=== PATIENT | female | born 1970 | race Asian ===

== ENCOUNTER 2017-11-06 15:46 | Inpatient (IN) | payer OTHER ==
[2017-11-06 16:29] LABS: BASOPHILS % (AUTO) 0.7 %; EOSINOPHILS % (AUTO) 0.6 %; LYMPHOCYTES % (AUTO) 35.2 %; MEAN CORPUSCULAR HEMOGLOBIN 12.3 pg (27.0-31.0); MEAN CORPUSCULAR HGB CONC 24.4 g/dL (32.0-36.0); MEAN CORPUSCULAR VOLUME 50.2 fL (81.0-99.0); MONOCYTES % (AUTO) 8.2 %; NEUTROPHILS % (AUTO) 55.3 %; PLT - PLATELET COUNT 417 10^3/uL (130-450); RED BLOOD COUNT 2.34 10^6/uL (4.20-5.40); RED CELL DISTRIBUTION WIDTH 23.5 % (12.0-15.0); WHITE BLOOD COUNT 5.4 x10^3/uL (4.8-10.8)
[2017-11-06 16:31] LABS: HGB - HEMOGLOBIN 2.9 g/dL (12.0-16.0)
[2017-11-06 16:32] LABS: INR 1.2 (0.8-1.2); PT - PROTHROMBIN TIME 13.2 secs (9.9-12.6)
[2017-11-06 16:34] LABS: ABNORMAL LYMPHS % (MANUAL) 0 %; BAND NEUTROPHILS % (MANUAL) 0 %
[2017-11-06 16:35] LABS: CALCIUM 8.7 mg/dL (8.5-10.3); CREATININE 0.4 mg/dL (0.4-1.0)
--- NOTE | 2017-11-06 16:47 | ED Physician Documentation ---
History of Present Illness - Stated complaint Stated Complaint: REFERRAL FROM LAB/MD LOW BLOOD TEST - Chief complaint Chief Complaint: General - History obtained from History obtained from: Patient, Family () - History of Present Illness Timing: Today (She went to her doctor's today for routine 1 year well visit, she had labs drawn showing hemoglobin of 3. This was repeated and was 2.9. She is asymptomatic. She says a few years ago she had upper and lower endoscopies for maybe bright red blood per rectum that were negative per her report. She never has a history of anemia though she has never been transfused. She continues to have regular menses that are not heavier than in the past. She denies any blood or dark or bloody stools.) Review of Systems Ten Systems: 10 systems reviewed and negative Constitutional: denies: Fever, Chills Cardiac: denies: Chest pain / pressure, Palpitations Respiratory: denies: Dyspnea, Cough GI: denies: Abdominal Pain, Nausea, Vomiting, Constipation, Diarrhea, Hematemesis, Bloody / black stool PD PAST MEDICAL HISTORY - Past Medical History Past Medical History: No - Present Medications Home Medications: Ambulatory Orders Medication Instructions Recorded Confirmed No Known Home Medications [No 11/06/17 11/06/17 Known Home Medications] - Allergies Allergies/Adverse Reactions: Allergies Allergy/AdvReac Type Severity Reaction Status Date / Time No Known Drug Allergies Allergy Verified 11/06/17 15:58 - Living Situation Living Situation: reports: With spouse/s.o. - Social History Does the pt smoke?: No Does the pt have substance abuse?: No - Family History Family history: reports: Non contributory PD ED PE NORMAL - Vitals Vital signs reviewed: Yes - General General: Alert and oriented X 3, No acute distress, Other (v pale) - HEENT HEENT: PERRL, EOMI - Neck Neck: Supple, no meningeal sign, No bony TTP - Cardiac Cardiac: RRR, No murmur - Respiratory Respiratory: No respiratory distress, Clear bilaterally - Abdomen Abdomen: Normal bowel sounds, Soft, Non tender - Rectal Rectal: Other (No stool in vault, but surgilube is guaiac neg.) - Neuro Neuro: Alert and oriented X 3 Eye Opening: Spontaneous Motor: Obeys Commands - Psych Psych: Normal mood, Normal affect Results - Vitals Vitals: Vital Signs - 24 hr 11/06/17 15:54 Temperature 36.7 C Heart Rate 104 H Respiratory 16 Rate Blood Pressure 124/57 L O2 Saturation 100 Oxygen O2 Source Room air - Labs Labs: Laboratory Tests 11/06/17 11/06/17 11/06/17 15:25 16:18 16:18 WBC 5.4 RBC 2.34 L Hgb 2.9 L* Hct 11.8 L* MCV 50.2 L MCH 12.3 L MCHC 24.4 L RDW 23.5 H Plt Count 417 MPV 8.0 Neut # Not Reportable Lymph # Not Reportable Callaway # Not Reportable Eos # Not Reportable Baso # Not Reportable Absolute Nucleated RBC Not Reportable Total Counted 100 Band Neuts % (Manual) 0 Abnorm Lymph % (Manual) 0 Nucleated RBC % Not Reportable Neutrophils # (Manual) 2.8 Lymphocytes # (Manual) 2.4 Monocytes # (Manual) 0.1 Eosinophils # (Manual) 0.1 Basophils # (Manual) 0.0 Differential Comment MANUAL DIFFERENTIAL Platelet Estimate INCREASED (>450,000) Platelet Morphology 1+ GIANT PLATELETS RBC Morph Micro Appear 4+ MICROCYTOSIS PT 13.2 H INR 1.2 APTT 30.9 Sodium Potassium Chloride Carbon Dioxide Anion Gap BUN Creatinine Estimated GFR (MDRD) Glucose Calcium Phosphorus Magnesium Iron TIBC % Saturation Transferrin Ferritin Vitamin B12 Folate Blood Type Blood Type Recheck B POSITIVE Antibody Screen Crossmatch IS Only 11/06/17 11/06/17 11/06/17 16:18 16:18 16:18 WBC RBC Hgb Hct MCV MCH MCHC RDW Plt Count MPV Neut # Lymph # Callaway # Eos # Baso # Absolute Nucleated RBC Total Counted Band Neuts % (Manual) Abnorm Lymph % (Manual) Nucleated RBC % Neutrophils # (Manual) Lymphocytes # (Manual) Monocytes # (Manual) Eosinophils # (Manual) Basophils # (Manual) Differential Comment Platelet Estimate Platelet Morphology RBC Morph Micro Appear PT INR APTT Sodium 135 Potassium 3.4 L Chloride 104 Carbon Dioxide 21 Anion Gap 10.0 BUN 7 Creatinine 0.4 Estimated GFR (MDRD) 171 Glucose 123 H Calcium 8.7 Phosphorus Magnesium Iron 8 L TIBC 535 H % Saturation 1 L Transferrin 382 Ferritin Vitamin B12 Folate Blood Type B POSITIVE Blood Type Recheck Antibody Screen NEGATIVE Crossmatch IS Only See Detail 11/06/17 11/06/17 16:18 16:18 WBC RBC Hgb Hct MCV MCH MCHC RDW Plt Count MPV Neut # Lymph # Callaway # Eos # Baso # Absolute Nucleated RBC Total Counted Band Neuts % (Manual) Abnorm Lymph % (Manual) Nucleated RBC % Neutrophils # (Manual) Lymphocytes # (Manual) Monocytes # (Manual) Eosinophils # (Manual) Basophils # (Manual) Differential Comment Platelet Estimate Platelet Morphology RBC Morph Micro Appear PT INR APTT Sodium Potassium Chloride Carbon Dioxide Anion Gap BUN Creatinine Estimated GFR (MDRD) Glucose Calcium Phosphorus 3.6 Magnesium 2.2 Iron TIBC % Saturation Transferrin Ferritin 1.2 L Vitamin B12 399 Folate 16.35 Blood Type Blood Type Recheck Antibody Screen Crossmatch IS Only PD MEDICAL DECISION MAKING - ED course ED course: 47-year-old woman presents with relatively asymptomatic but very severe anemia, she is guaiac negative but there was no stool in the vault. Spoke with Dr. Floyd for admission at 4:55 PM, blood was readied. Departure - Departure Disposition: [facility] DC/Xfer Clinical Impression: Severe anemia Condition: Stable Discharge Date/Time: 11/06/17 18:30
[2017-11-06 16:56] LABS: EOSINOPHILS # (MANUAL) 0.1 10^3/uL (0-0.7); LYMPHOCYTES # (MANUAL) 2.4 10^3/uL (1.5-3.5); LYMPHOCYTES % (MANUAL) 45 %; MONOCYTES # (MANUAL) 0.1 10^3/uL (0.0-1.0); NEUTROPHILS # (MANUAL) 2.8 10^3/uL (1.5-6.6); NEUTROPHILS % (MANUAL) 52 %
[2017-11-06 16:58] LABS: DIFFERENTIAL COMMENT MANUAL DIFFERENTIAL; PLATELET ESTIMATE, MANUAL INCREASED (>450,000) (NORMAL); PLATELET MORPHOLOGY 1+ GIANT PLATELETS (NORMAL)
[2017-11-06] MEDS ORDERED: PROCHLORPERAZINE 10 MG/2 ML VIAL IVP PRN (17:15)
[2017-11-06] MEDS ORDERED: ZOLPIDEM 5 MG TABLET PO PRN (17:15)
[2017-11-06] MEDS ORDERED: ACETAMINOPHEN 325 MG TABLET PO PRN (17:15)
[2017-11-06] MEDS ORDERED: ONDANSETRON 4 MG/2 ML VIAL IVP PRN (17:15)
[2017-11-06] MEDS ORDERED: oxyCODONE 5 MG TABLET PO PRN (17:15)
[2017-11-06] MEDS ORDERED: PROMETHAZINE 25 MG/1 ML VIAL IM PRN (17:15)
[2017-11-06 17:59] LABS: % IRON SATURATION 1 % (20-50); IRON 8 ug/dL (28-170); TOTAL IRON BINDING CAPACITY 535 ug/dL (250-450); TRANSFERRIN 382 mg/dL (192-382)
[2017-11-06 18:06] LABS: FERRITIN 1.2 ng/mL (11.0-306.8)
[2017-11-06 18:10] LABS: FOLATE 16.35 ng/mL (5.90 - >24.8)
--- NOTE | 2017-11-06 19:35 | HISTORY & PHYSICAL EXAMINATION ---
Chief Complaint - Chief Complaint Chief Complaint: Anemia History of Present Illness - Admitted From Admitted From:: Emergency Department - History Obtained From Records Reviewed: Yes History obtained from: Patient Exam Limitations: None - History of Present Illness HPI Comment/Other: Patient is a 47 year old female with no significant past medical history except some intermittent blood in her stools for which she underwent a negative EGD and colonoscopy a few years ago at the [facility] who presents to the emergency department with chief complaint of anemia. She states she went into her primary care doctors office today for a routine yearly check up and was called while she was out shopping with her and told that she needed to go the ER because she was very anemic with a hemoglobin of less than 3. She denies having had any symptoms except she states she had a cold 2 weeks ago for which she was in bed for 3 days. The patients says that his was dizzy and that is why she could not get up out of bed. The patient states it was more because of a cold. She denies having had any chest pain, shortness of breath, fatigue, black stools, lightheadness, syncope, weakness or appearing pale. On further questioning she does admit to intermittent blood in her stools that has been occurring for the past 2 years. She state she has an episode once every 2 months usually lasting for 1-2 days and then this resolves spontaneously. She says it is a minimal amount of blood that fills the toilet bowl. She denies any diarrhea. She denies any hematuria, hematemesis, bruising or changes in her mentation. Patient denies any headaches, blurred vision, runny nose, sore throat, nasal congestion, difficulty swallowing, chest pain, shortness of air, orthopnea, PND , increased lower extremity swelling, abdominal pain, nausea, vomiting, diarrhea , constipation, urinary urgency, urinary frequency, dysuria, hematuria, joint pain, joint swelling, muscle aches, back pain, neck stiffness, recent unintentional weight loss, changes in his appetite, rashes, hair loss or any focal neurologic deficits. On presentation to the emergency department the patient was afebrile however she was tachycardic but blood pressure was stable. Patient was not in any respiratory distress. She did appear very pale but otherwise did not complain of any symptoms. The patient's lab draw revealed hemoglobin of 2.9 with a MCV of 50.2. The patient had a slight hypokalemia of 3.4 otherwise remainder of her lab work was within normal limits. The patient's iron was low at 8 with an elevated TIBC and ferritin of 1.2 consistent with iron deficiency anemia. Given the patient's severe anemia and history of intermittent GI bleeding the patient was admitted to the hospital for severe anemia and possible GI bleed. Patient was started on blood transfusion in the emergency department. History - Past Medical History Cardiovascular: reports: None Respiratory: reports: None Neuro: reports: None Endocrine/Autoimmune: reports: None GI: reports: None : reports: None HEENT: reports: None Psych: reports: None Musculoskeletal: reports: None Derm: reports: None MRSA Hx?: No - Family & Social History Family History: Mother: Hypertension, Father: Living arrangement: At home Living Situation: With spouse/s.o. Social History Notes: The patient is originally from the [facility] but has been living in [place] for over 20 years. She lives with her they have 4 children. She has never smoked, she drinks alcohol once a year and denies any illicit drug use. - POLST Patient has POLST: No POLST Status: Full Code Meds/Allgy - Home Medications Home Medications: Ambulatory Orders Medication Instructions Recorded Confirmed No Known Home Medications [No 11/06/17 11/06/17 Known Home Medications] - Allergies Allergies/Adverse Reactions: Allergies Allergy/AdvReac Type Severity Reaction Status Date / Time No Known Drug Allergies Allergy Verified 11/06/17 15:58 Review of Systems - Other Findings Other Findings: A comprehensive review of systems was performed the pertinent positives and negatives are stated above in the HPI and the remainder of the review of systems is negative. Exam - Vital Signs Reviewed Vital Signs: Yes Vital Signs: Vital Signs x48h Temp Pulse Pulse Resp BP BP Pulse Ox 11/06/17 19:13 37.3 C 113 H 18 139/77 H 100 11/06/17 18:15 36.8 C 107 H 16 125/68 11/06/17 18:10 36.7 C 99 18 122/58 L 11/06/17 18:05 36.8 C 108 H 16 121/67 - Physical Exam General Appearance: positive: No acute distress, Alert, Other (Pale) Eyes Bilateral: positive: Normal inspection, PERRL, EOMI, No lid inflammation, No scleral icterus, Other (Conjunctival pallor) ENT: positive: ENT inspection nml, Pharynx nml, Dry mucous membranes. negative : Purulent nasal drainage, Pharyngeal erythema, Oral lesions Neck: positive: Nml inspection, Thyroid nml, No JVD, Trachea midline. negative : Thyromegaly, Lymphadenopathy (R), Lymphadenopathy (L), Stiff neck, Carotid bruit, Tracheal deviation Respiratory: positive: Chest non-tender, No respiratory distress, Breath sounds nml. negative: Wheezes, Rales, Rhonchi Cardiovascular: positive: No murmur, No gallop, Tachycardia Peripheral Pulses: positive: 2+ Abdomen: positive: Non-tender, No organomegaly, Nml bowel sounds, No distention. negative: Guarding, Rebound, Hepatomegaly Back: positive: Nml inspection. negative: CVA tenderness (R), CVA tenderness (L ) Skin: positive: No rash, Warm, Dry, Pallor. negative: Cyanosis, Diaphoresis Extremities: positive: Non-tender, Full ROM, Nml appearance, No pedal edema Neurologic/Psychiatric: positive: Oriented x3, CN's nml (2-12), Motor nml, Sensation nml, Mood/affect nml Conclusion/Plan - Problem List (1) Severe anemia Conclusion/Plan: Patient presents with severe anemia with hemoglobin of 2.9. She states that she is not symptomatic however she did have an episode 2 weeks ago where she was so dizzy she could not get out of bed for 3 days. Currently the patient does not appear to have any symptoms. She does admit to intermittent bloody stools for the last several years that occur once every couple of months for a couple of days. The patient does have severe iron deficiency anemia on lab work with iron level of 8 and elevated TIBC with ferritin of 1.2. Plan: Transfuse up to 6 units of packed RBCs H&H every 6 hours IV Protonix 40 mg twice daily Consult surgery for EGD and colonoscopy Iron replacement (2) Iron deficiency Conclusion/Plan: The patient presented with severe anemia with minimal symptoms and was found to have labs consistent with iron deficiency. Plan: Start patient on iron replacement (3) GI bleed Conclusion/Plan: Patient presented with severe anemia found to have iron deficiency. The patient did admit to intermittent episodes of blood in her stools. She has had EGD and colonoscopy in the past which were negative at that time. Patient does not have active bleeding and is hemodynamically stable. However she has severe anemia with hemoglobin of 2.9. Plan: Transfuse patient up to 6 units H&H every 6 hours IV Protonix 40 mg twice daily Surgery consult for EGD and colonoscopy Qualifiers: GI bleed type/associated pathology: unspecified gastrointestinal hemorrhage type Qualified Code(s): K92.2 - Gastrointestinal hemorrhage, unspecified (4) Hypokalemia Conclusion/Plan: K is 3.4 on presentation Replaced K Monitor K - Lab Results Lab results reviewed: Yes Fish Bones: 11/07/17 06:25 11/07/17 06:25 Other Lab Results: Laboratory Results WBC 5.4 x10^3/uL (4.8-10.8) 11/06/17 16:18 RBC 2.34 10^6/uL (4.20-5.40) L 11/06/17 16:18 Hgb 2.9 g/dL (12.0-16.0) L* 11/06/17 16:18 Hct 11.8 % (37.0-47.0) L* 11/06/17 16:18 MCV 50.2 fL (81.0-99.0) L 11/06/17 16:18 MCH 12.3 pg (27.0-31.0) L 11/06/17 16:18 MCHC 24.4 g/dL (32.0-36.0) L 11/06/17 16:18 RDW 23.5 % (12.0-15.0) H 11/06/17 16:18 Plt Count 417 10^3/uL (130-450) 11/06/17 16:18 MPV 8.0 fL (7.9-10.8) 11/06/17 16:18 Neut # Not Reportable 11/06/17 16:18 Lymph # Not Reportable 11/06/17 16:18 [place] # Not Reportable 11/06/17 16:18 Eos # Not Reportable 11/06/17 16:18 Baso # Not Reportable 11/06/17 16:18 Absolute Nucleated RBC Not Reportable 11/06/17 16:18 Total Counted 100 11/06/17 16:18 Band Neuts % (Manual) 0 % (0-10) 11/06/17 16:18 Abnorm Lymph % (Manual) 0 % 11/06/17 16:18 Nucleated RBC % Not Reportable 11/06/17 16:18 Neutrophils # (Manual) 2.8 10^3/uL (1.5-6.6) 11/06/17 16:18 Lymphocytes # (Manual) 2.4 10^3/uL (1.5-3.5) 11/06/17 16:18 Monocytes # (Manual) 0.1 10^3/uL (0.0-1.0) 11/06/17 16:18 Eosinophils # (Manual) 0.1 10^3/uL (0-0.7) 11/06/17 16:18 Basophils # (Manual) 0.0 10^3/uL (0-0.1) 11/06/17 16:18 Differential Comment MANUAL DIFFERENTIAL 11/06/17 16:18 Platelet Estimate INCREASED (>450,000) (NORMAL) 11/06/17: Platelet Morphology 1+ GIANT PLATELETS (NORMAL) 11/06/17: RBC Morph Micro Appear 4+ HYPOCHROMASIA (NORMAL) 3+ ANISOCYTOSIS (NORMAL) 3 + POIKILOCYTOSIS (NORMAL) 4+ MICROCYTOSIS (NORMAL) 11/06/17 16:18 RBC Morph Micro Appear 4+ HYPOCHROMASIA (NORMAL) 3+ ANISOCYTOSIS (NORMAL) 3 + POIKILOCYTOSIS (NORMAL) 4+ MICROCYTOSIS (NORMAL) 11/06/17 16:18 RBC Morph Micro Appear 4+ HYPOCHROMASIA (NORMAL) 3+ ANISOCYTOSIS (NORMAL) 3 + POIKILOCYTOSIS (NORMAL) 4+ MICROCYTOSIS (NORMAL) 11/06/17 16:18 RBC Morph Micro Appear 4+ HYPOCHROMASIA (NORMAL) 3+ ANISOCYTOSIS (NORMAL) 3 + POIKILOCYTOSIS (NORMAL) 4+ MICROCYTOSIS (NORMAL) 11/06/17 16:18 PT 13.2 secs (9.9-12.6) H 11/06/17 16:18 INR 1.2 (0.8-1.2) 11/06/17 16:18 APTT 30.9 secs (24.9-33.3) 11/06/17 16:18 Sodium 135 mmol/L (135-145) 11/06/17 16:18 Potassium 3.4 mmol/L (3.5-5.0) L 11/06/17 16:18 Chloride 104 mmol/L (101-111) 11/06/17 16:18 Carbon Dioxide 21 mmol/L (21-32) 11/06/17 16:18 Anion Gap 10.0 (6-13) 11/06/17 16:18 BUN 7 mg/dL (6-20) 11/06/17 16:18 Creatinine 0.4 mg/dL (0.4-1.0) 11/06/17 16:18 Estimated GFR (MDRD) 171 (>89) 11/06/17 16:18 Glucose 123 mg/dL (70-100) H 11/06/17 16:18 Calcium 8.7 mg/dL (8.5-10.3) 11/06/17 16:18 Iron 8 ug/dL (28-170) L 11/06/17 16:18 TIBC 535 ug/dL (250-450) H 11/06/17 16:18 % Saturation 1 % (20-50) L 11/06/17 16:18 Transferrin 382 mg/dL (192-382) 11/06/17 16:18 Ferritin 1.2 ng/mL (11.0-306.8) L 11/06/17 16:18 Vitamin B12 399 pg/mL (180-914) 11/06/17 16:18 Folate 16.35 ng/mL (5.90 - >24.8) 11/06/17 16:18 Blood Type B POSITIVE 11/06/17 16:18 Blood Type Recheck B POSITIVE 11/06/17 15:25 Antibody Screen NEGATIVE 11/06/17 16:18 Crossmatch IS Only See Detail 11/06/17 16:18 Core Measures - Anticipated LOS I expect patient to be DC'd or transferred within 96 hours.: Yes - DVT/VTE - Prophylaxis VTE/DVT Device ordered at admit?: Yes
[2017-11-06 20:38] LABS: MAGNESIUM 2.2 mg/dL (1.7-2.8); PHOSPHORUS 3.6 mg/dL (2.5-4.6)
[2017-11-06] MEDS: SODIUM CHLORIDE FLUSH 0.9% 10 ML SYRINGE IVP SCH (20:56)
[2017-11-06] MEDS: PANTOPRAZOLE 40 MG VIAL IVP SCH (20:56)
[2017-11-06] MEDS: SODIUM CHLORIDE FLUSH 0.9% 10 ML SYRINGE IVP PRN ×2 (20:56→22:54)
[2017-11-06] MEDS ORDERED: POTASSIUM CHLORIDE 20 MEQ TABLET PO SCH (21:00)
[2017-11-06 23:26] LABS: BASOPHILS % (AUTO) 0.8 %; EOSINOPHILS % (AUTO) 0.5 %; LYMPHOCYTES % (AUTO) 32.6 %; MEAN CORPUSCULAR HEMOGLOBIN 18.2 pg (27.0-31.0); MONOCYTES % (AUTO) 9.5 %; NEUTROPHILS % (AUTO) 56.6 %; PLT - PLATELET COUNT 354 10^3/uL (130-450); RED BLOOD COUNT 3.19 10^6/uL (4.20-5.40); RED CELL DISTRIBUTION WIDTH 39.2 % (12.0-15.0); WHITE BLOOD COUNT 6.2 x10^3/uL (4.8-10.8)
[2017-11-06 23:30] LABS: HGB - HEMOGLOBIN 5.8 g/dL (12.0-16.0)
[2017-11-07] MEDS: SODIUM CHLORIDE 0.9% 1,000 ML IV SCH ×2 (00:06→05:07)
[2017-11-07 00:32] LABS: ABNORMAL LYMPHS % (MANUAL) 0 %; BAND NEUTROPHILS % (MANUAL) 0 %; BASOPHILS # (MANUAL) 0.1 10^3/uL (0-0.1); BASOPHILS % (MANUAL) 1 %; LYMPHOCYTES # (MANUAL) 1.2 10^3/uL (1.5-3.5); LYMPHOCYTES % (MANUAL) 20 %; MONOCYTES # (MANUAL) 0.2 10^3/uL (0.0-1.0); NEUTROPHILS # (MANUAL) 4.7 10^3/uL (1.5-6.6); NEUTROPHILS % (MANUAL) 76 %; PLATELET MORPHOLOGY 1+ LARGE PLATELETS (NORMAL)
[2017-11-07 00:33] LABS: DIFFERENTIAL COMMENT MANUAL DIFFERENTIAL; PLATELET ESTIMATE, MANUAL NORMAL (130-450,000) (NORMAL)
[2017-11-07] MEDS: SODIUM CHLORIDE FLUSH 0.9% 10 ML SYRINGE IVP PRN ×3 (05:37→20:48)
[2017-11-07 06:41] LABS: BASOPHILS # (AUTO) 0.1 10^3/uL (0.0-0.1); BASOPHILS % (AUTO) 0.9 %; EOSINOPHILS # (AUTO) 0.1 10^3/uL (0.0-0.7); EOSINOPHILS % (AUTO) 1.3 %; LYMPHOCYTES # (AUTO) 1.9 10^3/uL (1.5-3.5); LYMPHOCYTES % (AUTO) 29.7 %; MEAN CORPUSCULAR HEMOGLOBIN 22.5 pg (27.0-31.0); MEAN CORPUSCULAR VOLUME 68.2 fL (81.0-99.0); MEAN PLATELET VOLUME 8.2 fL (7.9-10.8); MONOCYTES # (AUTO) 0.6 10^3/uL (0.0-1.0); MONOCYTES % (AUTO) 9.2 %; NEUTROPHILS # (AUTO) 3.8 10^3/uL (1.5-6.6); NEUTROPHILS % (AUTO) 58.9 %; PLT - PLATELET COUNT 292 10^3/uL (130-450); RED CELL DISTRIBUTION WIDTH 35.1 % (12.0-15.0); WHITE BLOOD COUNT 6.5 x10^3/uL (4.8-10.8)
[2017-11-07 06:44] LABS: INR 1.1 (0.8-1.2); PT - PROTHROMBIN TIME 12.8 secs (9.9-12.6)
[2017-11-07 07:07] LABS: ALBUMIN 3.9 g/dL (3.2-5.5); ALBUMIN/GLOBULIN RATIO 1.2 (1.0-2.2); BILIRUBIN,TOTAL 6.1 mg/dL (0.2-1.0); CALCIUM 8.5 mg/dL (8.5-10.3); CREATININE 0.3 mg/dL (0.4-1.0); MAGNESIUM 2.1 mg/dL (1.7-2.8); PHOSPHORUS 3.3 mg/dL (2.5-4.6); TOTAL PROTEIN 7.1 g/dL (6.7-8.2)
[2017-11-07 07:15] LABS: PLATELET ESTIMATE, MANUAL NORMAL (130-450,000) (NORMAL); PLATELET MORPHOLOGY NORMAL APPEARANCE (NORMAL)
[2017-11-07] MEDS: FAMOTIDINE 20 MG TABLET PO SCH (08:31)
[2017-11-07] MEDS: SODIUM CHLORIDE FLUSH 0.9% 10 ML SYRINGE IVP SCH ×2 (08:31→17:54)
[2017-11-07] MEDS: PANTOPRAZOLE 40 MG VIAL IVP SCH ×2 (08:31→20:48)
[2017-11-07] MEDS: FERROUS SULFATE 325 MG TABLET PO SCH ×2 (09:07→17:54)
[2017-11-07 09:51] LABS: BASOPHILS % (AUTO) 0.6 %; EOSINOPHILS # (AUTO) 0.1 10^3/uL (0.0-0.7); EOSINOPHILS % (AUTO) 0.8 %; HGB - HEMOGLOBIN 9.3 g/dL (12.0-16.0); LYMPHOCYTES # (AUTO) 1.3 10^3/uL (1.5-3.5); LYMPHOCYTES % (AUTO) 17.4 %; MEAN CORPUSCULAR HEMOGLOBIN 22.7 pg (27.0-31.0); MEAN CORPUSCULAR HGB CONC 33.4 g/dL (32.0-36.0); MEAN CORPUSCULAR VOLUME 68.1 fL (81.0-99.0); MEAN PLATELET VOLUME 8.2 fL (7.9-10.8); MONOCYTES # (AUTO) 0.6 10^3/uL (0.0-1.0); MONOCYTES % (AUTO) 8.4 %; NEUTROPHILS # (AUTO) 5.6 10^3/uL (1.5-6.6); NEUTROPHILS % (AUTO) 72.8 %; PLT - PLATELET COUNT 279 10^3/uL (130-450); RED BLOOD COUNT 4.09 10^6/uL (4.20-5.40); RED CELL DISTRIBUTION WIDTH 34.5 % (12.0-15.0); WHITE BLOOD COUNT 7.7 x10^3/uL (4.8-10.8)
[2017-11-07 10:16] LABS: PLATELET ESTIMATE, MANUAL NORMAL (130-450,000) (NORMAL); PLATELET MORPHOLOGY NORMAL APPEARANCE (NORMAL)
--- NOTE | 2017-11-07 15:08 | CONSULTATION NOTE ---
Referring Provider Name of Referring Provider:: Ben Floyd MD Consult Date: 11/07/17 Chief Complaint - Chief Complaint Chief Complaint: Profound anemia History of Present Illness - Admitted From Admitted From:: [facility] ED - History Obtained From Records Reviewed: Yes History obtained from: Patient and records Exam Limitations: None. - History of Present Illness HPI Comment/Other: This very pleasant and remarkably asymptomatic 47-year-old female came to our emergency department with a hemoglobin of 2.9. The number was so low and the patient was asymptomatic so the physicians in her care thought that a error had been made. They repeated the lab and found that her hemoglobin indeed was 2.9. Upon questioning the patient has rare rectal bleeding about once a month. She denies nausea vomiting constipation diarrhea melena or hematemesis. She denies weight loss. I am asked to perform an upper and lower endoscopy to look for source of bleeding. The patient states that she had scopes performed about 10 years ago may be longer. I do not have any record of those scopes. History - Past Medical History Cardiovascular: reports: None Respiratory: reports: None Neuro: reports: None Endocrine/Autoimmune: reports: None GI: reports: None : reports: None HEENT: reports: None Psych: reports: None Musculoskeletal: reports: None Derm: reports: None MRSA Hx?: No - Family & Social History Family History: Mother: Hypertension, Father: Living arrangement: At home Living Situation: With spouse/s.o. Social History Notes: The patient is originally from the [facility] but has been living in [place] for over 20 years. She lives with her they have 4 children. She has never smoked, she drinks alcohol once a year and denies any illicit drug use. - POLST Patient has POLST: No POLST Status: Full Code Meds/Allgy - Home Medications Home Medications: Ambulatory Orders Medication Instructions Recorded Confirmed No Known Home Medications [No 11/06/17 11/07/17 Known Home Medications] - Allergies Allergies/Adverse Reactions: Allergies Allergy/AdvReac Type Severity Reaction Status Date / Time No Known Drug Allergies Allergy Verified 11/06/17 15:58 Review of Systems - Constitutional Constitutional: denies: Fatigue - Cardiovascular Cariovascular: denies: Irregular heart rate, Palpitations, Chest pain, Lightheadedness - Respiratory Respiratory: denies: Cough - Gastrointestinal Gastrointestinal: reports: Rectal bleeding (Rare episodes of rectal bleeding once a month or so.). denies: Abdominal pain, Abdominal distention, Constipation, Diarrhea, Black stools - Genitourinary Genitourinary: denies: Hematuria - Musculoskeletal Musculoskeletal: denies: Muscle pain - Neurological Neurological: denies: General weakness (The patient was remarkably asymptomatic. ), Focal weakness Exam - Vital Signs Reviewed Vital Signs: Yes Vital Signs: Vital Signs x48h Temp Pulse Resp BP Pulse Ox 11/07/17 14:00 36.9 C 75 19 137/82 H 99 11/07/17 10:00 77 17 143/91 H 100 11/07/17 09:00 93 20 140/90 H 99 11/07/17 08:00 36.6 C 90 20 138/85 H 99 - Physical Exam General Appearance: positive: No acute distress Eyes Bilateral: positive: No lid inflammation, Conjunctivae nml, No scleral icterus Neck: positive: Trachea midline Respiratory: positive: Chest non-tender, No respiratory distress, Breath sounds nml Cardiovascular: positive: Regular rate & rhythm Abdomen: positive: Non-tender Skin: positive: Color nml Extremities: positive: Non-tender, Full ROM, Nml appearance Neurologic/Psychiatric: positive: Oriented x3 Conclusion/Plan - Diagnosis Diagnosis: Profound anemia with no source identified - Plan Plan: Esophagogastroduodenoscopy and colonoscopy with possible biopsies and/or polypectomies. Indications, procedure, alternatives (such as barium studies ( upper or lower), Cologuard (lower) and even no procedure at all) and risks including but not limited to perforation requiring operative repair, bleeding with its risks, and were fully explained to her. Conscious sedation was discussed at length with her as were its risks including but not limited to loss of airway, aspiration, respiratory depression, and not enough relief of pain and anxiety and she indicated that she wished to have conscious sedation for her procedure. I explained that her posterior oropharynx would also be anesthetized for the procedure. I explained that MAC anesthesia is associated with a higher incidence of intestinal perforation. Review of her history does not reveal any significant systemic disease that would contraindicate use of conscious sedation or MAC anesthesia. All questions were fully answered. Verbal and written consent was obtained. The patient in preparation for her esophagogastroduodenoscopy and colonoscopy will be n.p.o. and her colon will be mechanically prepped. 45 minutes of [id number] time spent with the patient over 2 visits with the majority of which was spent in discussion Chandni disclaimer: This document was created in part using voice recognition technology. Because of the inherent limitations of the system ([employer]'s [employer] user manual states that the licensee understands that speech recognition is a statistical process and that recognition errors are inherent in the process), occasional same sounding word substitutions and grammatical errors do occur and persist despite proofreading. Please read this document for context. - Lab Results Lab results reviewed: Yes Herb Bones: 11/08/17 04:45 11/08/17 04:45
--- NOTE | 2017-11-07 16:35 | PROVIDER PROGRESS NOTE ---
Assessment/Plan - Problem List (1) Severe anemia Assessment/Plan: Patient presented with severe anemia with hemoglobin of 2.9. She statef that she was not symptomatic however she did have an episode 2 weeks ago where she was so dizzy she could not get out of bed for 3 days. Currently the patient does not appear to have any symptoms. She does admit to intermittent bloody stools for the last several years that occur once every couple of months for a couple of days. The patient does have severe iron deficiency anemia on lab work with iron level of 8 and elevated TIBC with ferritin of 1.2. Plan: Transfused 4 units PRBCs and Hb up to 9.0 H&H every 6 hours IV Protonix 40 mg twice daily Consulted surgery patient will get EGD and colonoscopy tomorrow NPO after midnight Iron replacement started with FeSO4 BID (2) Iron deficiency Conclusion/Plan: The patient presented with severe anemia with minimal symptoms and was found to have labs consistent with iron deficiency. Plan: Started patient on iron replacement BID (3) GI bleed Conclusion/Plan: Patient presented with severe anemia found to have iron deficiency. The patient did admit to intermittent episodes of blood in her stools. She has had EGD and colonoscopy in the past which were negative at that time. Patient does not have active bleeding and is hemodynamically stable. However she has severe anemia with hemoglobin of 2.9. Patient states she had some blood in stools last night Plan: Transfused 4 units PRBCs and hb up to 9 H&H every 6 hours IV Protonix 40 mg twice daily Surgery consulted for EGD and colonoscopy which will be tomorrow Qualifiers: GI bleed type/associated pathology: unspecified gastrointestinal hemorrhage type Qualified Code(s): K92.2 - Gastrointestinal hemorrhage, unspecified (4) Hypokalemia Conclusion/Plan: Resolved - Current Meds Current Meds: Current Medications Generic Name Dose Route Start Last Admin Trade Name Freq PRN Reason Stop Dose Admin Famotidine 20 mg 11/07/17 09:00 11/07/17 08:31 Pepcid PO 20 mg DAILY FAREED Administration Ferrous Sulfate 325 mg 11/07/17 09:00 11/07/17 09:07 Feosol PO 325 mg BIDWM FAREED Administration Sodium Chloride 1,000 mls @ 100 mls/hr 11/06/17 18:00 11/07/17 05:07 Normal Saline 0.9% IV Not Given .Q10H FAREED Pantoprazole Sodium 40 mg 11/06/17 21:00 11/07/17 08:31 Protonix IVP 40 mg BID FAREED Administration Sodium Chloride 10 ml 11/07/17 01:00 11/07/17 08:31 Normal Saline Flush 0.9% IVP 10 ml [id number],[id number],1700 FAREED Administration Sodium Chloride 10 ml 11/06/17 17:15 11/07/17 08:31 Normal Saline Flush 0.9% IVP 10 ml PRN PRN Administration NEEDED PER PROVIDER ORDERS - Lab Result Lab results reviewed: Yes Fish Bone Diagrams: 11/07/17 09:28 11/07/17 06:25 - Additional Planning Condition/Complexity: Improved My Orders: My Active Orders 11/07/17 UA, MICROSCOPIC & CULT IF [URIN] Urgent 11/07/17 09:00 Ferrous Sulfate [Feosol] 325 mg PO BIDWM 11/07/17 10:24 Vital Signs [RC] Q4HR 11/08/17 00:01 NPO except Meds at Midnight [DIET] 11/08/17 05:00 CBC - COMP BLD CT W/AUTO DIFF [HEME] DAILYLAB Consult/Specialty: Surgery Plan Discussed with:: Patient, Spouse Time Spent: 31-60 minutes Subjective - Subjective Patient Reports: Feeling Better, Resting Comfortably, No Complaints Nursing Reports: No Complaints Objective Vital Signs: Vital Signs - 24 hr 11/06/17 11/06/17 11/06/17 18:05 18:10 18:15 Temperature 36.8 C 36.7 C 36.8 C Heart Rate 108 H 99 107 H Heart Rate [ Apical] Heart Rate [ Monitoring electrodes] Respiratory 16 18 16 Rate Blood Pressure 121/67 122/58 L 125/68 Blood Pressure [Left Radial artery] Blood Pressure [Right Brachial artery] Blood Pressure [Right Radial artery] O2 Saturation 11/06/17 11/06/17 11/06/17 19:13 19:59 20:00 Temperature 37.3 C 37.2 C 37.2 C Heart Rate 86 Heart Rate [ 113 H 86 Apical] Heart Rate [ Monitoring electrodes] Respiratory 18 13 13 Rate Blood Pressure 131/64 H Blood Pressure [Left Radial artery] Blood Pressure 139/77 H [Right Brachial artery] Blood Pressure 131/64 H [Right Radial artery] O2 Saturation 100 100 11/06/17 11/06/17 11/06/17 20:08 20:25 21:00 Temperature 37.2 C 37.2 C Heart Rate 86 86 Heart Rate [ Apical] Heart Rate [ 93 Monitoring electrodes] Respiratory 13 14 18 Rate Blood Pressure 131/64 H 131/74 H Blood Pressure 151/74 H [Left Radial artery] Blood Pressure [Right Brachial artery] Blood Pressure [Right Radial artery] O2 Saturation 100 11/06/17 11/06/17 11/06/17 22:00 22:50 22:53 Temperature 37.1 C 37.1 C Heart Rate 88 Heart Rate [ Apical] Heart Rate [ 83 88 Monitoring electrodes] Respiratory 16 17 17 Rate Blood Pressure 154/93 H Blood Pressure 140/81 H 154/93 H [Left Radial artery] Blood Pressure [Right Brachial artery] Blood Pressure [Right Radial artery] O2 Saturation 100 100 11/06/17 11/06/17 11/06/17 23:00 23:30 23:45 Temperature 37.1 C 37.1 C Heart Rate 79 80 Heart Rate [ Apical] Heart Rate [ 83 79 Monitoring electrodes] Respiratory 17 18 16 Rate Blood Pressure 141/76 H 142/77 H Blood Pressure 139/75 H 141/76 H [Left Radial artery] Blood Pressure [Right Brachial artery] Blood Pressure [Right Radial artery] O2 Saturation 100 100 11/07/17 11/07/17 11/07/17 00:00 01:00 02:00 Temperature Heart Rate Heart Rate [ Apical] Heart Rate [ 91 70 68 Monitoring electrodes] Respiratory 17 16 16 Rate Blood Pressure Blood Pressure 159/84 H 135/75 H 133/79 H [Left Radial artery] Blood Pressure [Right Brachial artery] Blood Pressure [Right Radial artery] O2 Saturation 100 100 100 11/07/17 11/07/17 11/07/17 02:40 02:44 03:00 Temperature 37 C 37 C 37.1 C Heart Rate 80 80 82 Heart Rate [ Apical] Heart Rate [ 80 82 Monitoring electrodes] Respiratory 16 16 16 Rate Blood Pressure 143/81 H 143/81 H 134/81 H Blood Pressure 143/81 H 134/81 H [Left Radial artery] Blood Pressure [Right Brachial artery] Blood Pressure [Right Radial artery] O2 Saturation 100 100 11/07/17 11/07/17 11/07/17 04:00 05:00 05:35 Temperature 37.1 C Heart Rate 80 Heart Rate [ Apical] Heart Rate [ 66 64 Monitoring electrodes] Respiratory 16 16 18 Rate Blood Pressure 153/86 H Blood Pressure 137/87 H 135/80 H [Left Radial artery] Blood Pressure [Right Brachial artery] Blood Pressure [Right Radial artery] O2 Saturation 100 100 11/07/17 11/07/17 11/07/17 06:00 07:00 08:00 Temperature 36.6 C Heart Rate Heart Rate [ Apical] Heart Rate [ 73 74 90 Monitoring electrodes] Respiratory 16 17 20 Rate Blood Pressure Blood Pressure 146/88 H 134/83 H 138/85 H [Left Radial artery] Blood Pressure [Right Brachial artery] Blood Pressure [Right Radial artery] O2 Saturation 99 98 99 11/07/17 11/07/17 11/07/17 09:00 10:00 14:00 Temperature 36.9 C Heart Rate Heart Rate [ Apical] Heart Rate [ 93 77 75 Monitoring electrodes] Respiratory 20 17 19 Rate Blood Pressure Blood Pressure 140/90 H 143/91 H 137/82 H [Left Radial artery] Blood Pressure [Right Brachial artery] Blood Pressure [Right Radial artery] O2 Saturation 99 100 99 Oxygen O2 Source Room air I&O (Last 24 Hrs): Intake and Output Totals x24h 11/05/17 11/06/17 11/07/17 23:59 23:59 23:59 Intake Total 506 1668 Output Total 600 1000 Balance -94 668 General: Alert, Oriented x3, Cooperative, No acute distress HEENT: Atraumatic, PERRLA, EOMI Neck: Supple, No JVD, No thyromegaly, +2 carotid pulse wo bruit, No LAD Lymphatic: no adenopathy Neuro: Alert, CN 2-12 Grossly Intact, Oriented Times 3 Cardiovascular: Regular rate, Normal S1, Normal S2, No murmurs Respiratory: Chest non-tender, No respiratory distress, Breath sounds nml Abdomen: Normal bowel sounds, Soft, No tenderness, No hepatospenomegaly, No masses Extremities: No clubbing, No cyanosis, No edema, Normal pulses, No tenderness/ swelling Skin: No rashes, No breakdown, No significant lesion - Results Results: Laboratory Results WBC 7.7 x10^3/uL (4.8-10.8) 11/07/17 09:28 RBC 4.09 10^6/uL (4.20-5.40) L 11/07/17 09: Hgb 9.3 g/dL (12.0-16.0) L 11/07/17: Hct 27.9 % (37.0-47.0) L 11/07/17: MCV 68.1 fL (81.0-99.0) L 11/07/17: MCH 22.7 pg (27.0-31.0) L 11/07/17: MCHC 33.4 g/dL (32.0-36.0) 11/07/17: RDW 34.5 % (12.0-15.0) H 11/07/17: Plt Count 279 10^3/uL (130-450) 11/07/17: MPV 8.2 fL (7.9-10.8) 11/07/17: Neut # 5.6 10^3/uL (1.5-6.6) 11/07/17: Lymph # 1.3 10^3/uL (1.5-3.5) L 11/07/17: Saline # 0.6 10^3/uL (0.0-1.0) 11/07/17: Eos # 0.1 10^3/uL (0.0-0.7) 11/07/17: Baso # 0.0 10^3/uL (0.0-0.1) 11/07/17: Absolute Nucleated RBC 0.02 x10^3/uL 11/07/17: Total Counted 100 11/06/17 23:17 Band Neuts % (Manual) 0 % (0-10) 11/06/17 23:17 Abnorm Lymph % (Manual) 0 % 11/06/17 23: Nucleated RBC % 0.3 /100WBC 11/07/17: Neutrophils # (Manual) 4.7 10^3/uL (1.5-6.6) 11/06/17 23:17 Lymphocytes # (Manual) 1.2 10^3/uL (1.5-3.5) L 11/06/17 23: Monocytes # (Manual) 0.2 10^3/uL (0.0-1.0) 11/06/17 23:17 Eosinophils # (Manual) 0.0 10^3/uL (0-0.7) 11/06/17 23:17 Basophils # (Manual) 0.1 10^3/uL (0-0.1) 11/06/17 23:17 Nucleated RBCs 1 % 11/06/17 23: Differential Comment MANUAL DIFFERENTIAL 11/06/17 23: Manual Slide Review Indicated 11/07/17 09:28 Platelet Estimate NORMAL (130-450,000) (NORMAL) 11/07/17 09:28 Platelet Morphology NORMAL APPEARANCE (NORMAL) 11/07/17 09:28 RBC Morph Micro Appear 4+ HYPOCHROMASIA (NORMAL) 3+ ANISOCYTOSIS (NORMAL) 3 + POIKILOCYTOSIS (NORMAL) 4+ MICROCYTOSIS (NORMAL) 11/06/17 16:18 RBC Morph Micro Appear 3+ HYPOCHROMASIA (NORMAL) 2+ ANISOCYTOSIS (NORMAL) 2 + POIKILOCYTOSIS (NORMAL) 3+ MICROCYTOSIS (NORMAL) 2+ SCHISTOCYTES (NORMAL) 1 + OVALOCYTES (NORMAL) 11/06/17 23:17 RBC Morph Micro Appear 3+ HYPOCHROMASIA (NORMAL) 2+ ANISOCYTOSIS (NORMAL) 2 + POIKILOCYTOSIS (NORMAL) 3+ MICROCYTOSIS (NORMAL) 2+ SCHISTOCYTES (NORMAL) 1 + OVALOCYTES (NORMAL) 11/06/17 23:17 RBC Morph Micro Appear 3+ HYPOCHROMASIA (NORMAL) 2+ ANISOCYTOSIS (NORMAL) 2 + POIKILOCYTOSIS (NORMAL) 3+ MICROCYTOSIS (NORMAL) 2+ SCHISTOCYTES (NORMAL) 1 + OVALOCYTES (NORMAL) 11/06/17 23:17 RBC Morph Micro Appear 3+ HYPOCHROMASIA (NORMAL) 2+ ANISOCYTOSIS (NORMAL) 2 + POIKILOCYTOSIS (NORMAL) 3+ MICROCYTOSIS (NORMAL) 2+ SCHISTOCYTES (NORMAL) 1 + OVALOCYTES (NORMAL) 11/06/17 23:17 RBC Morph Micro Appear 3+ HYPOCHROMASIA (NORMAL) 2+ ANISOCYTOSIS (NORMAL) 2 + POIKILOCYTOSIS (NORMAL) 3+ MICROCYTOSIS (NORMAL) 2+ SCHISTOCYTES (NORMAL) 1 + OVALOCYTES (NORMAL) 11/06/17 23:17 RBC Morph Micro Appear 3+ HYPOCHROMASIA (NORMAL) 2+ ANISOCYTOSIS (NORMAL) 2 + POIKILOCYTOSIS (NORMAL) 3+ MICROCYTOSIS (NORMAL) 2+ SCHISTOCYTES (NORMAL) 1 + OVALOCYTES (NORMAL) 11/06/17 23:17 RBC Morph Micro Appear 1+ OVALOCYTES (NORMAL) 1+ POLYCHROMASIA (NORMAL) 1+ MACROCYTOSIS (NORMAL) 2+ HYPOCHROMASIA (NORMAL) 2+ MICROCYTOSIS (NORMAL) 3+ ANISOCYTOSIS (NORMAL) 11/07/17 06:25 RBC Morph Micro Appear 1+ OVALOCYTES (NORMAL) 1+ POLYCHROMASIA (NORMAL) 1+ MACROCYTOSIS (NORMAL) 2+ HYPOCHROMASIA (NORMAL) 2+ MICROCYTOSIS (NORMAL) 3+ ANISOCYTOSIS (NORMAL) 11/07/17 06:25 RBC Morph Micro Appear 1+ OVALOCYTES (NORMAL) 1+ POLYCHROMASIA (NORMAL) 1+ MACROCYTOSIS (NORMAL) 2+ HYPOCHROMASIA (NORMAL) 2+ MICROCYTOSIS (NORMAL) 3+ ANISOCYTOSIS (NORMAL) 11/07/17 06:25 RBC Morph Micro Appear 1+ OVALOCYTES (NORMAL) 1+ POLYCHROMASIA (NORMAL) 1+ MACROCYTOSIS (NORMAL) 2+ HYPOCHROMASIA (NORMAL) 2+ MICROCYTOSIS (NORMAL) 3+ ANISOCYTOSIS (NORMAL) 11/07/17 06:25 RBC Morph Micro Appear 1+ OVALOCYTES (NORMAL) 1+ POLYCHROMASIA (NORMAL) 1+ MACROCYTOSIS (NORMAL) 2+ HYPOCHROMASIA (NORMAL) 2+ MICROCYTOSIS (NORMAL) 3+ ANISOCYTOSIS (NORMAL) 11/07/17 06:25 RBC Morph Micro Appear 1+ OVALOCYTES (NORMAL) 1+ POLYCHROMASIA (NORMAL) 1+ MACROCYTOSIS (NORMAL) 2+ HYPOCHROMASIA (NORMAL) 2+ MICROCYTOSIS (NORMAL) 3+ ANISOCYTOSIS (NORMAL) 11/07/17 06:25 RBC Morph Micro Appear 1+ OVALOCYTES (NORMAL) 3+ ANISOCYTOSIS (NORMAL) 1+ POLYCHROMASIA (NORMAL) 2+ HYPOCHROMASIA (NORMAL) 2+ MICROCYTOSIS (NORMAL) 11/07/17 09:28 RBC Morph Micro Appear 1+ OVALOCYTES (NORMAL) 3+ ANISOCYTOSIS (NORMAL) 1+ POLYCHROMASIA (NORMAL) 2+ HYPOCHROMASIA (NORMAL) 2+ MICROCYTOSIS (NORMAL) 11/07/17 09:28 RBC Morph Micro Appear 1+ OVALOCYTES (NORMAL) 3+ ANISOCYTOSIS (NORMAL) 1+ POLYCHROMASIA (NORMAL) 2+ HYPOCHROMASIA (NORMAL) 2+ MICROCYTOSIS (NORMAL) 11/07/17 09:28 RBC Morph Micro Appear 1+ OVALOCYTES (NORMAL) 3+ ANISOCYTOSIS (NORMAL) 1+ POLYCHROMASIA (NORMAL) 2+ HYPOCHROMASIA (NORMAL) 2+ MICROCYTOSIS (NORMAL) 11/07/17 09:28 RBC Morph Micro Appear 1+ OVALOCYTES (NORMAL) 3+ ANISOCYTOSIS (NORMAL) 1+ POLYCHROMASIA (NORMAL) 2+ HYPOCHROMASIA (NORMAL) 2+ MICROCYTOSIS (NORMAL) 11/07/17 09:28 PT 12.8 secs (9.9-12.6) H 11/07/17 06:25 INR 1.1 (0.8-1.2) 11/07/17 06:25 APTT 30.9 secs (24.9-33.3) 11/06/17 16:18 Sodium 137 mmol/L (135-145) 11/07/17 06:25 Potassium 3.8 mmol/L (3.5-5.0) 11/07/17 06:25 Chloride 109 mmol/L (101-111) 11/07/17 06:25 Carbon Dioxide 21 mmol/L (21-32) 11/07/17 06:25 Anion Gap 7.0 (6-13) 11/07/17 06:25 BUN 7 mg/dL (6-20) 11/07/17 06:25 Creatinine 0.3 mg/dL (0.4-1.0) L 11/07/17 06:25 Estimated GFR (MDRD) 238 (>89) 11/07/17 06:25 Glucose 103 mg/dL (70-100) H 11/07/17 06:25 Calcium 8.5 mg/dL (8.5-10.3) 11/07/17 06:25 Phosphorus 3.3 mg/dL (2.5-4.6) 11/07/17 06:25 Magnesium 2.1 mg/dL (1.7-2.8) 11/07/17 06:25 Iron 8 ug/dL (28-170) L 11/06/17 16:18 TIBC 535 ug/dL (250-450) H 11/06/17 16:18 % Saturation 1 % (20-50) L 11/06/17 16:18 Transferrin 382 mg/dL (192-382) 11/06/17 16:18 Ferritin 1.2 ng/mL (11.0-306.8) L 11/06/17 16:18 Total Bilirubin 6.1 mg/dL (0.2-1.0) H 11/07/17 06:25 AST 13 IU/L (10-42) 11/07/17 06:25 ALT 10 IU/L (10-60) 11/07/17 06:25 Alkaline Phosphatase 47 IU/L (42-121) 11/07/17 06:25 Total Protein 7.1 g/dL (6.7-8.2) 11/07/17 06:25 Albumin 3.9 g/dL (3.2-5.5) 11/07/17 06:25 Globulin 3.2 g/dL (2.1-4.2) 11/07/17 06:25 Albumin/Globulin Ratio 1.2 (1.0-2.2) 11/07/17 06:25 Vitamin B12 399 pg/mL (180-914) 11/06/17 16:18 Folate 16.35 ng/mL (5.90 - >24.8) 11/06/17 16:18 Blood Type B POSITIVE 11/06/17 16:18 Blood Type Recheck B POSITIVE 11/06/17 15:25 Antibody Screen NEGATIVE 11/06/17 16:18 Crossmatch IS Only See Detail 11/06/17 16:18
[2017-11-07 16:52] LABS: BILIRUBIN,URINE NEGATIVE (NEGATIVE); GLUCOSE, URINE (UA) NEGATIVE (NEGATIVE); KETONES,URINE (UA) NEGATIVE (NEGATIVE); LEUKOCYTE ESTERASE, URINE SMALL (NEGATIVE); NITRITE,URINE NEGATIVE (NEGATIVE); OCCULT BLOOD,URINE NEGATIVE (NEGATIVE); PROTEIN,URINE NEGATIVE (NEGATIVE); UROBILINOGEN,URINE 0.2 (NORMAL) E.U./dL (NORMAL)
[2017-11-07 16:58] LABS: CLARITY,URINE CLEAR (CLEAR)
[2017-11-07 17:46] LABS: BACTERIA,URINE None Seen /HPF (None Seen); RBC,URINE 3 /HPF (0-5); SQUAMOUS EPITHELIAL CELL,UR MOD Squamous (<= Few)
[2017-11-07] MEDS: SODIUM/POTASSIUM/MAG SULFATES 354 ML PREP KIT PO SCH (18:05)
[2017-11-08] MEDS: SODIUM CHLORIDE FLUSH 0.9% 10 ML SYRINGE IVP SCH ×3 (01:21→17:12)
[2017-11-08] MEDS: SODIUM/POTASSIUM/MAG SULFATES 354 ML PREP KIT PO SCH (04:51)
[2017-11-08 05:07] LABS: BASOPHILS # (AUTO) 0.1 10^3/uL (0.0-0.1); BASOPHILS % (AUTO) 1.2 %; EOSINOPHILS # (AUTO) 0.2 10^3/uL (0.0-0.7); EOSINOPHILS % (AUTO) 3.3 %; HGB - HEMOGLOBIN 9.4 g/dL (12.0-16.0); LYMPHOCYTES # (AUTO) 2.2 10^3/uL (1.5-3.5); LYMPHOCYTES % (AUTO) 30.4 %; MEAN CORPUSCULAR HGB CONC 32.1 g/dL (32.0-36.0); MEAN CORPUSCULAR VOLUME 68.6 fL (81.0-99.0); MEAN PLATELET VOLUME 8.1 fL (7.9-10.8); MONOCYTES # (AUTO) 0.7 10^3/uL (0.0-1.0); MONOCYTES % (AUTO) 8.8 %; NEUTROPHILS # (AUTO) 4.2 10^3/uL (1.5-6.6); NEUTROPHILS % (AUTO) 56.3 %; PLT - PLATELET COUNT 280 10^3/uL (130-450); RED BLOOD COUNT 4.26 10^6/uL (4.20-5.40); RED CELL DISTRIBUTION WIDTH 36.1 % (12.0-15.0); WHITE BLOOD COUNT 7.4 x10^3/uL (4.8-10.8)
[2017-11-08 05:10] LABS: ALBUMIN/GLOBULIN RATIO 1.3 (1.0-2.2); BILIRUBIN,TOTAL 2.4 mg/dL (0.2-1.0); CALCIUM 8.7 mg/dL (8.5-10.3); CREATININE 0.3 mg/dL (0.4-1.0); MAGNESIUM 2.1 mg/dL (1.7-2.8); PHOSPHORUS 3.2 mg/dL (2.5-4.6); TOTAL PROTEIN 7.2 g/dL (6.7-8.2)
[2017-11-08 05:39] LABS: PLATELET ESTIMATE, MANUAL NORMAL (130-450,000) (NORMAL); PLATELET MORPHOLOGY 1+ LARGE PLATELETS (NORMAL)
[2017-11-08] MEDS: FERROUS SULFATE 325 MG TABLET PO SCH ×2 (08:16→17:13)
[2017-11-08 09:37] LABS: MEAN RETIC VALUE 100.9; RED BLOOD COUNT 4.54 10^6/uL (4.20-5.40)
[2017-11-08 09:49] LABS: BILIRUBIN,DIRECT 0.1 mg/dL (0.1-0.5); BILIRUBIN,INDIRECT 2.8 mg/dL; BILIRUBIN,TOTAL 2.9 mg/dL (0.2-1.0)
[2017-11-08 09:53] LABS: HCG,QUALITATIVE BLOOD NEGATIVE
[2017-11-08] MEDS ORDERED: LIDO GARGLE 30 ML BOTTLE ONE (09:59)
[2017-11-08] MEDS: FAMOTIDINE 20 MG TABLET PO SCH (10:05)
[2017-11-08] MEDS: SODIUM CHLORIDE FLUSH 0.9% 10 ML SYRINGE IVP PRN (10:13)
[2017-11-08] MEDS: PANTOPRAZOLE 40 MG VIAL IVP SCH (10:13)
[2017-11-08] MEDS ORDERED: LACTATED RINGERS 1,000 ML IV ONE (10:33)
[2017-11-08] MEDS ORDERED: LIDO GARGLE 30 ML BOTTLE PO ONE (10:40)
[2017-11-08] MEDS ORDERED: BENZOCAINE/TETRACAINE/BUTAMBEN SPRAY 56 GM TOP ONE (10:40)
[2017-11-08] MEDS ORDERED: fentaNYL 250 MCG/5 ML VIAL IVP ONE (11:00)
[2017-11-08] MEDS ORDERED: MIDAZOLAM 2 MG/2 ML VIAL IVP ONE (11:00)
[2017-11-08 16:49] VITALS: BP 110/67
--- NOTE | 2017-11-08 18:11 | Discharge Plan ---
Discharge Plan Disposition: 01 Home, Self Care Condition: Fair Prescriptions: Ferrous Sulfate 325 mg PO BID #60 tablet Diet: Regular Activity Restrictions: No Restrictions Shower Restrictions: No Driving Restrictions: No Weight Bearing: Full Weight Additional Instructions or Follow Up instructions: He presented to the emergency room because you were called by her primary care physician's office and told that you had a hemoglobin of less than 3. In the ER we found that you have a hemoglobin of 2.9. You were transfused 4 units of packed RBCs and her hemoglobin has improved to 9.4. It is remained stable for over 24 hours. We did not find any source of bleeding on EGD and colonoscopy. You did have some internal hemorrhoids and some mild esophagitis. If the hemorrhoids do bother you we suggest that you follow-up with surgery for hemorrhoidectomy. We did find that you are severely iron deficient and have prescribed iron pills that you will need to take twice a day. We also found that your anemia may be hemolytic. It appears that your red blood cells are being broken down at a very rapid pace. You had an elevated bilirubin. We did send off some additional lab work which has yet to come back and we did do an ultrasound of your abdomen for which we do not yet have results. I recommend that you see your primary care physician early next week and have your labs redrawn. He will also need a referral to a biometric fingerprinting technician for further workup of your anemia. No Smoking: If you smoke, Please STOP! Call for help.
--- NOTE | 2017-11-08 18:42 | DISCHARGE SUMMARY ---
"Discharge Summary Admit Date: 11/06/17 Discharge Date: 11/08/17 Discharging Provider: Ben Floyd MD Primary Care Provider: [facility] Code Status: Attempt Resuscitation Condition at Discharge: Fair Discharge Disposition: 01 Home, Self Care - DIAGNOSES Admission Diagnoses: 1. Severe anemia 2. Iron deficiency 3. GI bleed 4. Hypokalemia Discharge Diagnoses with Status of Each Condition: 1. Severe anemia: Stable 2. Iron deficiency: Guarded 3. Hemolytic anemia: Stable 4. Esophagitis: Stable 5. Internal hemorrhoids: Stable 6. Hypokalemia: Stable - HPI History of Present Illness: Patient is a 47 year old female with no significant past medical history except some intermittent blood in her stools for which she underwent a negative EGD and colonoscopy a few years ago at the [facility] who presents to the emergency department with chief complaint of anemia. She states she went into her primary care doctors office today for a routine yearly check up and was called while she was out shopping with her and told that she needed to go the ER because she was very anemic with a hemoglobin of less than 3. She denies having had any symptoms except she states she had a cold 2 weeks ago for which she was in bed for 3 days. The patients says that his was dizzy and that is why she could not get up out of bed. The patient states it was more because of a cold. She denies having had any chest pain, shortness of breath, fatigue, black stools, lightheadness, syncope, weakness or appearing pale. On further questioning she does admit to intermittent blood in her stools that has been occurring for the past 2 years. She state she has an episode once every 2 months usually lasting for 1-2 days and then this resolves spontaneously. She says it is a minimal amount of blood that fills the toilet bowl. She denies any diarrhea. She denies any hematuria, hematemesis, bruising or changes in her mentation. Patient denies any headaches, blurred vision, runny nose, sore throat, nasal congestion, difficulty swallowing, chest pain, shortness of air, orthopnea, PND , increased lower extremity swelling, abdominal pain, nausea, vomiting, diarrhea , constipation, urinary urgency, urinary frequency, dysuria, hematuria, joint pain, joint swelling, muscle aches, back pain, neck stiffness, recent unintentional weight loss, changes in his appetite, rashes, hair loss or any focal neurologic deficits. On presentation to the emergency department the patient was afebrile however she was tachycardic but blood pressure was stable. Patient was not in any respiratory distress. She did appear very pale but otherwise did not complain of any symptoms. The patient's lab draw revealed hemoglobin of 2.9 with a MCV of 50.2. The patient had a slight hypokalemia of 3.4 otherwise remainder of her lab work was within normal limits. The patient's iron was low at 8 with an elevated TIBC and ferritin of 1.2 consistent with iron deficiency anemia. Given the patient's severe anemia and history of intermittent GI bleeding the patient was admitted to the hospital for severe anemia and possible GI bleed. Patient was started on blood transfusion in the emergency department. - CONSULTS | PROCEDURES Consultations: Surgery Dr. Egan Procedures: EGD and colonoscopy: Findings were mild esophagitis and internal hemorrhoids - HOSPITAL COURSE Hospital Course: The patient presents to the emergency department with anemia. The patient had seen her primary care physician for a yearly checkup and was found to have a hemoglobin of less than 3. She was called by her primary care physician office and told to come to the emergency department. In the emergency department she was found to have a hemoglobin of 2.9. She was completely asymptomatic on presentation. She did state that she had had several episodes over the last year of blood in her stools intermittently. The patient's blood work revealed that she had severe iron deficiency anemia with low iron, elevated TIBC and low ferritin. The patient was started on iron replacement therapy. The patient's labs also revealed that she likely had hemolytic anemia as her total bilirubin was elevated at 6.1 and she had elevated reticulocyte count. The patient's haptoglobin was still pending. The patient did undergo EGD and colonoscopy which revealed some mild esophagitis which did not appear to be a source of bleeding. The patient's stomach was completely clear of any ulcers or gastritis. The patient's colonoscopy only revealed internal hemorrhoids which were not bleeding. Given the patient's elevated bilirubin she also underwent a abdominal ultrasound however the abdominal ultrasound results were not back prior to the patient's discharge. The patient was transfused 4 units of packed RBCs during the hospitalization and the patient's hemoglobin remained stable at 9.4 throughout the hospitalization. The patient will need to follow-up with her primary care physician at the [facility] as she will need repeat labs next week to ensure that her hemoglobin is not continuing to drop. She will also need further workup for hemolytic anemia. She should be referred to a clamp carrier operator for peripheral smear and other workup. The patient's blood was sent for lead levels, haptoglobin, copper levels and Chuy test however these were all send outs and the test results are still pending. We would recommend that prior to the patient's appointment next week that the clinic checks with us to see the results of these lab tests as well as the abdominal ultrasound. The patient was discharged home with oral iron supplements. - ALLERGIES Allergies/Adverse Reactions: Allergies Allergy/AdvReac Type Severity Reaction Status Date / Time No Known Drug Allergies Allergy Verified 11/06/17 15:58 - MEDICATIONS Home Medications: Ambulatory Orders Medication Instructions Recorded Confirmed Ferrous Sulfate 325 mg PO BID #60 tablet 11/08/17 - PHYSICAL EXAM AT DISCHARGE General Appearance: positive: No acute distress, Alert Eyes Bilateral: positive: Normal inspection, PERRL, EOMI, No lid inflammation, Other (Scleral icterus) ENT: positive: ENT inspection nml, Pharynx nml, No signs of dehydration. negative: Purulent nasal drainage, Pharyngeal erythema, Oral lesions Neck: positive: Nml inspection, Thyroid nml, No JVD, Trachea midline. negative : Thyromegaly, Lymphadenopathy (R), Lymphadenopathy (L), Carotid bruit, Tracheal deviation Respiratory: positive: Chest non-tender, No respiratory distress, Breath sounds nml. negative: Wheezes, Rales, Rhonchi Cardiovascular: positive: Regular rate & rhythm, No murmur, No gallop Peripheral Pulses: positive: 2+ Abdomen: positive: Non-tender, No organomegaly, Nml bowel sounds, No distention. negative: Guarding, Rebound, Hepatomegaly, Splenomegaly Back: positive: Nml inspection. negative: CVA tenderness (R), CVA tenderness (L ) Skin: positive: No rash, Warm, Pallor. negative: Cyanosis, Diaphoresis Extremities: positive: Non-tender, Full ROM, Nml appearance, No pedal edema Neurologic/Psychiatric: positive: Oriented x3, CN's nml (2-12), Motor nml, Sensation nml, Mood/affect nml - LABS Result Diagrams: 11/08/17 04:45 11/08/17 04:45 Other Lab Results: Laboratory Results WBC 7.4 x10^3/uL (4.8-10.8) 11/08/17 04:45 RBC 4.54 10^6/uL (4.20-5.40) 11/08/17 09:26 Hgb 9.4 g/dL (12.0-16.0) L 11/08/17 04:45 Hct 29.2 % (37.0-47.0) L 11/08/17 04:45 MCV 68.6 fL (81.0-99.0) L 11/08/17 04:45 MCH 22.0 pg (27.0-31.0) L 11/08/17 04:45 MCHC 32.1 g/dL (32.0-36.0) 11/08/17 04:45 RDW 36.1 % (12.0-15.0) H 11/08/17 04:45 Plt Count 280 10^3/uL (130-450) 11/08/17 04:45 MPV 8.1 fL (7.9-10.8) 11/08/17 04:45 Reticulocyte % (Auto) 2.44 % (0.5-2.3) H 11/08/17 09:26 Neut # 4.2 10^3/uL (1.5-6.6) 11/08/17 04:45 Lymph # 2.2 10^3/uL (1.5-3.5) 11/08/17 04:45 Carter # 0.7 10^3/uL (0.0-1.0) 11/08/17 04:45 Eos # 0.2 10^3/uL (0.0-0.7) 11/08/17 04:45 Baso # 0.1 10^3/uL (0.0-0.1) 11/08/17 04:45 Absolute Nucleated RBC 0.03 x10^3/uL 11/08/17 04:45 Total Counted 100 11/06/17 23:17 Band Neuts % (Manual) 0 % (0-10) 11/06/17 23:17 Abnorm Lymph % (Manual) 0 % 11/06/17 23:17 Nucleated RBC % 0.4 /100WBC 11/08/17 04:45 Neutrophils # (Manual) 4.7 10^3/uL (1.5-6.6) 11/06/17 23:17 Lymphocytes # (Manual) 1.2 10^3/uL (1.5-3.5) L 11/06/17 23:17 Monocytes # (Manual) 0.2 10^3/uL (0.0-1.0) 11/06/17 23:17 Eosinophils # (Manual) 0.0 10^3/uL (0-0.7) 11/06/17 23:17 Basophils # (Manual) 0.1 10^3/uL (0-0.1) 11/06/17 23:17 Nucleated RBCs 1 % 11/06/17 23:17 Differential Comment MANUAL DIFFERENTIAL 11/06/17 23:17 Manual Slide Review Indicated 11/08/17 04:45 Platelet Estimate NORMAL (130-450,000) (NORMAL) 11/08/17 04:45 Platelet Morphology 1+ LARGE PLATELETS (NORMAL) 11/08/17 04:45 RBC Morph Micro Appear 3+ HYPOCHROMASIA (NORMAL) 2+ ANISOCYTOSIS (NORMAL) 2 + POIKILOCYTOSIS (NORMAL) 3+ MICROCYTOSIS (NORMAL) 2+ SCHISTOCYTES (NORMAL) 1 + OVALOCYTES (NORMAL) 11/06/17 23:17 RBC Morph Micro Appear 3+ HYPOCHROMASIA (NORMAL) 2+ ANISOCYTOSIS (NORMAL) 2 + POIKILOCYTOSIS (NORMAL) 3+ MICROCYTOSIS (NORMAL) 2+ SCHISTOCYTES (NORMAL) 1 + OVALOCYTES (NORMAL) 11/06/17 23:17 RBC Morph Micro Appear 3+ HYPOCHROMASIA (NORMAL) 2+ ANISOCYTOSIS (NORMAL) 2 + POIKILOCYTOSIS (NORMAL) 3+ MICROCYTOSIS (NORMAL) 2+ SCHISTOCYTES (NORMAL) 1 + OVALOCYTES (NORMAL) 11/06/17 23:17 RBC Morph Micro Appear 3+ HYPOCHROMASIA (NORMAL) 2+ ANISOCYTOSIS (NORMAL) 2 + POIKILOCYTOSIS (NORMAL) 3+ MICROCYTOSIS (NORMAL) 2+ SCHISTOCYTES (NORMAL) 1 + OVALOCYTES (NORMAL) 11/06/17 23:17 RBC Morph Micro Appear 3+ HYPOCHROMASIA (NORMAL) 2+ ANISOCYTOSIS (NORMAL) 2 + POIKILOCYTOSIS (NORMAL) 3+ MICROCYTOSIS (NORMAL) 2+ SCHISTOCYTES (NORMAL) 1 + OVALOCYTES (NORMAL) 11/06/17 23:17 RBC Morph Micro Appear 3+ HYPOCHROMASIA (NORMAL) 2+ ANISOCYTOSIS (NORMAL) 2 + POIKILOCYTOSIS (NORMAL) 3+ MICROCYTOSIS (NORMAL) 2+ SCHISTOCYTES (NORMAL) 1 + OVALOCYTES (NORMAL) 11/06/17 23:17 RBC Morph Micro Appear 1+ OVALOCYTES (NORMAL) 1+ POLYCHROMASIA (NORMAL) 1+ MACROCYTOSIS (NORMAL) 2+ HYPOCHROMASIA (NORMAL) 2+ MICROCYTOSIS (NORMAL) 3+ ANISOCYTOSIS (NORMAL) 11/07/17 06:25 RBC Morph Micro Appear 1+ OVALOCYTES (NORMAL) 1+ POLYCHROMASIA (NORMAL) 1+ MACROCYTOSIS (NORMAL) 2+ HYPOCHROMASIA (NORMAL) 2+ MICROCYTOSIS (NORMAL) 3+ ANISOCYTOSIS (NORMAL) 11/07/17 06:25 RBC Morph Micro Appear 1+ OVALOCYTES (NORMAL) 1+ POLYCHROMASIA (NORMAL) 1+ MACROCYTOSIS (NORMAL) 2+ HYPOCHROMASIA (NORMAL) 2+ MICROCYTOSIS (NORMAL) 3+ ANISOCYTOSIS (NORMAL) 11/07/17 06:25 RBC Morph Micro Appear 1+ OVALOCYTES (NORMAL) 1+ POLYCHROMASIA (NORMAL) 1+ MACROCYTOSIS (NORMAL) 2+ HYPOCHROMASIA (NORMAL) 2+ MICROCYTOSIS (NORMAL) 3+ ANISOCYTOSIS (NORMAL) 11/07/17 06:25 RBC Morph Micro Appear 1+ OVALOCYTES (NORMAL) 1+ POLYCHROMASIA (NORMAL) 1+ MACROCYTOSIS (NORMAL) 2+ HYPOCHROMASIA (NORMAL) 2+ MICROCYTOSIS (NORMAL) 3+ ANISOCYTOSIS (NORMAL) 11/07/17 06:25 RBC Morph Micro Appear 1+ OVALOCYTES (NORMAL) 1+ POLYCHROMASIA (NORMAL) 1+ MACROCYTOSIS (NORMAL) 2+ HYPOCHROMASIA (NORMAL) 2+ MICROCYTOSIS (NORMAL) 3+ ANISOCYTOSIS (NORMAL) 11/07/17 06:25 RBC Morph Micro Appear 1+ OVALOCYTES (NORMAL) 3+ ANISOCYTOSIS (NORMAL) 1+ POLYCHROMASIA (NORMAL) 2+ HYPOCHROMASIA (NORMAL) 2+ MICROCYTOSIS (NORMAL) 11/07/17 09:28 RBC Morph Micro Appear 1+ OVALOCYTES (NORMAL) 3+ ANISOCYTOSIS (NORMAL) 1+ POLYCHROMASIA (NORMAL) 2+ HYPOCHROMASIA (NORMAL) 2+ MICROCYTOSIS (NORMAL) 11/07/17 09:28 RBC Morph Micro Appear 1+ OVALOCYTES (NORMAL) 3+ ANISOCYTOSIS (NORMAL) 1+ POLYCHROMASIA (NORMAL) 2+ HYPOCHROMASIA (NORMAL) 2+ MICROCYTOSIS (NORMAL) 11/07/17 09:28 RBC Morph Micro Appear 1+ OVALOCYTES (NORMAL) 3+ ANISOCYTOSIS (NORMAL) 1+ POLYCHROMASIA (NORMAL) 2+ HYPOCHROMASIA (NORMAL) 2+ MICROCYTOSIS (NORMAL) 11/07/17 09:28 RBC Morph Micro Appear 1+ OVALOCYTES (NORMAL) 3+ ANISOCYTOSIS (NORMAL) 1+ POLYCHROMASIA (NORMAL) 2+ HYPOCHROMASIA (NORMAL) 2+ MICROCYTOSIS (NORMAL) 11/07/17 09:28 RBC Morph Micro Appear 2+ HYPOCHROMASIA (NORMAL) 1+ POLYCHROMASIA (NORMAL) 1 + OVALOCYTES (NORMAL) 3+ ANISOCYTOSIS (NORMAL) 2+ MICROCYTOSIS (NORMAL) 1+ MACROCYTOSIS (NORMAL) 1+ SCHISTOCYTES (NORMAL) 11/08/17 04:45 RBC Morph Micro Appear 2+ HYPOCHROMASIA (NORMAL) 1+ POLYCHROMASIA (NORMAL) 1 + OVALOCYTES (NORMAL) 3+ ANISOCYTOSIS (NORMAL) 2+ MICROCYTOSIS (NORMAL) 1+ MACROCYTOSIS (NORMAL) 1+ SCHISTOCYTES (NORMAL) 11/08/17 04:45 RBC Morph Micro Appear 2+ HYPOCHROMASIA (NORMAL) 1+ POLYCHROMASIA (NORMAL) 1 + OVALOCYTES (NORMAL) 3+ ANISOCYTOSIS (NORMAL) 2+ MICROCYTOSIS (NORMAL) 1+ MACROCYTOSIS (NORMAL) 1+ SCHISTOCYTES (NORMAL) 11/08/17 04:45 RBC Morph Micro Appear 2+ HYPOCHROMASIA (NORMAL) 1+ POLYCHROMASIA (NORMAL) 1 + OVALOCYTES (NORMAL) 3+ ANISOCYTOSIS (NORMAL) 2+ MICROCYTOSIS (NORMAL) 1+ MACROCYTOSIS (NORMAL) 1+ SCHISTOCYTES (NORMAL) 11/08/17 04:45 RBC Morph Micro Appear 2+ HYPOCHROMASIA (NORMAL) 1+ POLYCHROMASIA (NORMAL) 1 + OVALOCYTES (NORMAL) 3+ ANISOCYTOSIS (NORMAL) 2+ MICROCYTOSIS (NORMAL) 1+ MACROCYTOSIS (NORMAL) 1+ SCHISTOCYTES (NORMAL) 11/08/17 04:45 RBC Morph Micro Appear 2+ HYPOCHROMASIA (NORMAL) 1+ POLYCHROMASIA (NORMAL) 1 + OVALOCYTES (NORMAL) 3+ ANISOCYTOSIS (NORMAL) 2+ MICROCYTOSIS (NORMAL) 1+ MACROCYTOSIS (NORMAL) 1+ SCHISTOCYTES (NORMAL) 11/08/17 04:45 RBC Morph Micro Appear 2+ HYPOCHROMASIA (NORMAL) 1+ POLYCHROMASIA (NORMAL) 1 + OVALOCYTES (NORMAL) 3+ ANISOCYTOSIS (NORMAL) 2+ MICROCYTOSIS (NORMAL) 1+ MACROCYTOSIS (NORMAL) 1+ SCHISTOCYTES (NORMAL) 11/08/17 04:45 Absolute Retic 0.111 10^6/uL (0.020-0.110) H 11/08/17 09:26 PT 12.8 secs (9.9-12.6) H 11/07/17 06:25 INR 1.1 (0.8-1.2) 11/07/17 06:25 APTT 30.9 secs (24.9-33.3) 11/06/17 16:18 Sodium 139 mmol/L (135-145) 11/08/17 04:45 Potassium 3.6 mmol/L (3.5-5.0) 11/08/17 04:45 Chloride 110 mmol/L (101-111) 11/08/17 04:45 Carbon Dioxide 23 mmol/L (21-32) 11/08/17 04:45 Anion Gap 6.0 (6-13) 11/08/17 04:45 BUN 8 mg/dL (6-20) 11/08/17 04:45 Creatinine 0.3 mg/dL (0.4-1.0) L 11/08/17 04:45 Estimated GFR (MDRD) 238 (>89) 11/08/17 04:45 Glucose 104 mg/dL (70-100) H 11/08/17 04:45 Calcium 8.7 mg/dL (8.5-10.3) 11/08/17 04:45 Phosphorus 3.2 mg/dL (2.5-4.6) 11/08/17 04:45 Magnesium 2.1 mg/dL (1.7-2.8) 11/08/17 04:45 Iron 8 ug/dL (28-170) L 11/06/17 16:18 TIBC 535 ug/dL (250-450) H 11/06/17 16:18 % Saturation 1 % (20-50) L 11/06/17 16:18 Transferrin 382 mg/dL (192-382) 11/06/17 16:18 Ferritin 1.2 ng/mL (11.0-306.8) L 11/06/17 16:18 Total Bilirubin 2.9 mg/dL (0.2-1.0) H 11/08/17 09:26 Direct Bilirubin 0.1 mg/dL (0.1-0.5) 11/08/17 09:26 Indirect Bilirubin 2.8 mg/dL 11/08/17 09:26 AST 15 IU/L (10-42) 11/08/17 04:45 ALT 10 IU/L (10-60) 11/08/17 04:45 Alkaline Phosphatase 53 IU/L (42-121) 11/08/17 04:45 Lactate Dehydrogenase 141 IU/L (91-225) 11/08/17 09:26 Total Protein 7.2 g/dL (6.7-8.2) 11/08/17 04:45 Albumin 4.0 g/dL (3.2-5.5) 11/08/17 04:45 Globulin 3.2 g/dL (2.1-4.2) 11/08/17 04:45 Albumin/Globulin Ratio 1.3 (1.0-2.2) 11/08/17 04:45 Vitamin B12 399 pg/mL (180-914) 11/06/17 16:18 Folate 16.35 ng/mL (5.90 - >24.8) 11/06/17 16:18 Serum HCG, Qual NEGATIVE 11/08/17 09:26 Urine Color YELLOW 11/07/17 16:48 Urine Clarity CLEAR (CLEAR) 11/07/17 16:48 Urine pH 7.0 PH (5.0-7.5) 11/07/17 16:48 Ur Specific [place] 1.010 (1.002-1.030) 11/07/17 16:48 Urine Protein NEGATIVE mg/dL (NEGATIVE) 11/07/17 16:48 Urine Glucose (UA) NEGATIVE mg/dL (NEGATIVE) 11/07/17 16:48 Urine Ketones NEGATIVE mg/dL (NEGATIVE) 11/07/17 16:48 Urine Occult Blood NEGATIVE (NEGATIVE) 11/07/17 16:48 Urine Nitrite NEGATIVE (NEGATIVE) 11/07/17 16:48 Urine Bilirubin NEGATIVE (NEGATIVE) 11/07/17 16:48 Urine Urobilinogen 0.2 (NORMAL) E.U./dL (NORMAL) 11/07/17 16:48 Ur Leukocyte Esterase SMALL (NEGATIVE) H 11/07/17 16:48 Urine RBC 3 /HPF (0-5) 11/07/17 16:48 Urine WBC 4-5 /HPF (0-5) 11/07/17 16:48 Ur Squamous Epith Cells MOD Squamous (<= Few) H 11/07/17 16:48 Urine Bacteria None Seen /HPF (None Seen) 11/07/17 16:48 Ur Microscopic Review INDICATED 11/07/17 16:48 Urine Culture Comments NOT INDICATED 11/07/17 16:48 Blood Type B POSITIVE 11/06/17 16:18 Blood Type Recheck B POSITIVE 11/06/17 15:25 Antibody Screen NEGATIVE 11/06/17 16:18 M[place]ISON, IgG Specific Not Reportable 11/08/17 09:26 M[place]ISON, Polyspecific NEGATIVE 11/08/17 09:26 M[place], C3d Specific Not Reportable 11/08/17 09:26 Crossmatch IS Only See Detail 11/06/17 16:18 - FOLLOW UP Follow Up: The patient will need to follow-up with her primary care physician at the [facility] as she will need repeat labs next week to ensure that her hemoglobin is not continuing to drop. She will also need further workup for hemolytic anemia. She should be referred to a clamp carrier operator for peripheral smear and other workup. The patient's blood was sent for lead levels, haptoglobin, copper levels and Chuy test however these were all send outs and the test results are still pending. We would recommend that prior to the patient's appointment next week that the clinic checks with us to see the results of these lab tests as well as the abdominal ultrasound. The patient was discharged home with oral iron supplements. - TIME SPENT Time Spent in Discharge (Minutes): 45"
--- NOTE | 2017-11-08 19:05 | Ultrasound Report ---
COMPLETE ABDOMINAL ULTRASOUND: 11/08/2017 CLINICAL INDICATION: Elevated bilirubin, anemia. TECHNIQUE: Real-time scanning was performed with sales representatives static images obtained. FINDINGS: The liver measures 15.5 cm. Hepatic echogenicity is normal. No intrahepatic biliary dilatation or focal parenchymal lesion is present. The common bile duct measures 4 mm. The gallbladder demonstrates a 1 mm echogenic focus adherent to the posterior wall, which may represent a tiny polyp or tiny focus of adherent tumefactive sludge. No cholelithiasis, wall thickening, or pericholecystic fluid is present. The common bile duct measures 4 mm. The pancreas is normal. The kidneys are normal, with the right measuring 12.3 cm and the left measuring 11.2 cm. The spleen measures 9.4 cm, and demonstrates normal echotexture. The abdominal aorta is normal in caliber. The inferior vena cava is unremarkable. No free fluid is present. IMPRESSION: NORMAL ABDOMINAL ULTRASOUND. TD: 11/08/2017 19:04
[2017-11-10 16:31] LABS: LEAD (B) COLLECTION SAMPLE VENOUS
[2017-11-12 17:37] LABS: HAPTOGLOBIN 195 mg/dL (43-212)
[2017-11-12 18:26] LABS: COPPER 120 mcg/dL (70-175)
== END 2017-11-08 18:35 | disposition home or self-care (01) | DRG 812 ==
LOC: ED 15:46 → ICU 17:15
PROVIDERS: ADMIT Internal Medicine; ATTEND Internal Medicine
PROC: 30233N1 Transfusion of Nonautologous Red Blood Cells into Peripheral Vein, Percutaneous Approach (ICD-10-PCS; 2017-11-06)
PROC: 0DJD8ZZ Inspection of Lower Intestinal Tract, Via Natural or Artificial Opening Endoscopic (ICD-10-PCS; 2017-11-08)
PROC: 0DB58ZX Excision of Esophagus, Via Natural or Artificial Opening Endoscopic, Diagnostic (ICD-10-PCS; principal; 2017-11-08 10:15)
PROC: 0DB78ZX Excision of Stomach, Pylorus, Via Natural or Artificial Opening Endoscopic, Diagnostic (ICD-10-PCS; 2017-11-08 10:15)
DX: D50.9 Iron deficiency anemia, unspecified (principal); K92.1 Melena; E87.6 Hypokalemia; D58.9 Hereditary hemolytic anemia, unspecified; K20.9 Esophagitis, unspecified; K64.8 Other hemorrhoids
CPT/HCPCS: 36415; 76700; 80048; 80053; 81001; 81003; 82247; 82248; 82525; 82607; 82728; 82746; 83010; 83540; 83615; 83655; 83735; 84100; 84466; 84703; 85025; 85044; 85610; 85730; 86850; 86880; 86900; 86901; 86920; 87081; 87086; 87150; 88305; 99282; 99283; 99285

== ENCOUNTER 2021-01-27 13:01 | Outpatient (CLI) | payer OTHER ==
--- NOTE | 2021-01-30 14:00 | Mammography Report ---
BILATERAL DIGITAL SCREENING MAMMOGRAM 3D/2D: 01/27/2021 CLINICAL: Routine screening. Comparison is made to exams dated: 03/25/2019 mammogram, 03/14/2018 mammogram, and 06/20/2016 mammogram - [facility]. The tissue of both breasts is heterogeneously dense. This may lower the sens itivity of mammography. No significant masses, calcifications, or other findings are seen in either breast. There has been no significant interval change. IMPRESSION: NEGATIVE There is no mammographic evidence of malignancy. A 1 year screening mammogram is recommended. This exam was interpreted at Station ID: [id number]. NOTE: For mammograms, a report in lay terms will be sent to the patient. Approximately 15% of breast malignancies will not be visualized mammographically. In the management of a palpable breast mass, a negative mammogram must not discourage biopsy of a clinically suspicious lesion. Electronically Signed By: Tk Pearson M.D. aty/penrad:01/27/2021 13:52:42 ACR BI-RADS Category 1: Negative 3341F PARENCHYMAL PATTERN: (D) - The breast(s) demonstrate(s) heterogeneously dense fibroglandular lili seals. BI-RADS CATEGORY: (1) - 1 RECOMMENDATION: (ANNUAL) - Recommend routine annual screening mammography. [id number] 1 year screening LATERALITY: (B)
== END 2021-01-27 13:02 | disposition home or self-care (01) ==
LOC: DI 13:01
DX: Z12.31 Encounter for screening mammogram for malignant neoplasm of breast (principal)